=== PATIENT | male | born 1940 | race Caucasian/White ===

== ENCOUNTER 2016-05-18 14:24 | Inpatient (IN) | payer MEDICARE ==
[2016-05-18] MEDS ORDERED: NITROGLYCERIN OINT 1 INCH/GM PACKET TOPICAL STA (14:51)
[2016-05-18] MEDS ORDERED: LORazepam 2 MG/ML SYRINGE IV STA (14:51)
--- NOTE | 2016-05-18 14:57 | ED ---
General Adult HPI - General Chief complaint: Chest Pain Stated complaint: Chest Pain Time Seen by Provider: 05/18/16 14:40 Source: patient, family, RN notes reviewed Mode of arrival: wheelchair Limitations: no limitations - History of Present Illness Initial comments: This is a 75-year-old male who presents to the emergency department complaining of pain in his back. Patient states she had similar pain about 3 years ago and he had a heart attack and 2 stents placed at that time. Patient states this feels exactly the same as it did then. Patient denies any anterior chest pain. Patient denies any difficulty breathing or shortness of breath. Patient denies any radiation of the pain. Patient denies any nausea. Patient denies any diaphoresis. Patient states the pain started about 4:00 this morning didn' t think much of it but today is that they when it got progressively worse. Patient denies any recent fever or chills or cough. Patient denies any abdominal pain. Patient denies any vomiting or diarrhea. Patient denies being lightheaded dizzy or having any near syncopal episodes. Patient denies any headache patient denies numbness weakness. Patient states took a nitroglycerin away and an aspirin and the pain has subsided since then but is not completely gone currently. - Related Data Home Medications Medication Instructions Recorded Confirmed Allopurinol [Zyloprim] 300 mg PO DAILY 05/18/16 05/18/16 Aspirin 81 mg PO DAILY 05/18/16 05/18/16 Atorvastatin Calcium [Lipitor] 20 mg PO DAILY 05/18/16 05/18/16 Carisoprodol [Soma] 350 mg PO HS 05/18/16 05/18/16 Colchicine [Colcrys] 0.6 mg PO BID 05/18/16 05/18/16 Diazepam [Valium] 5 mg PO DAILY PRN 05/18/16 05/18/16 Metoprolol Succinate (ER) [Toprol 50 mg PO DAILY 05/18/16 05/18/16 Xl] Multivitamin [Men's Multi-Vitamin] 1 tab PO DAILY 05/18/16 05/18/16 Omeprazole [PriLOSEC] 20 mg PO AC-BRKFST 05/18/16 05/18/16 amLODIPine [Norvasc] 5 mg PO DAILY 05/18/16 05/18/16 Allergies Allergy/AdvReac Type Severity Reaction Status Date / Time No Known Allergies Allergy Verified 05/18/16 15:22 Review of Systems ROS Statement: Those systems with pertinent positive or pertinent negative responses have been documented in the HPI. ROS Other: All systems not noted in ROS Statement are negative. Past Medical History Past Medical History: Hypertension, Myocardial Infarction ([place]) Additional Past Medical History / Comment(s): Gout History of Any Multi-Drug Resistant Organisms: None Reported Past Surgical History: Heart Catheterization With Stent Past Psychological History: No Psychological Hx Reported Smoking Status: Current every day smoker Past Alcohol Use History: None Reported Past Drug Use History: None Reported General Exam - General Exam Comments Initial Comments: GENERAL: Patient is well-developed and well-nourished. Patient is nontoxic and well- hydrated and is in mild distress. ENT: Neck is soft and supple. No significant lymphadenopathy is noted. Oropharynx is clear. Moist mucous membranes. Neck has full range of motion without eliciting any pain. EYES: The sclera were anicteric and conjunctiva were pink and moist. Extraocular movements were intact and pupils were equal round and reactive to light. Eyelids were unremarkable. PULMONARY: Unlabored respirations. Good breath sounds bilaterally. No audible rales rhonchi or wheezing was noted. CARDIOVASCULAR: There is a regular rate and rhythm without any murmurs gallops or rubs. Femoral pulses are equal bilaterally ABDOMEN: Soft and nontender with normal bowel sounds. No palpable organomegaly was noted. There is no palpable pulsatile mass. SKIN: Skin is clear with no lesions or rashes and otherwise unremarkable. NEUROLOGIC: Patient is alert and oriented x3. Cranial nerves II through XII are grossly intact. Motor and sensory are also intact. Normal speech, volume and content. Symmetrical smile. Cerebellar exam grossly intact. MUSCULOSKELETAL: Normal extremities with adequate strength and full range of motion. No lower extremity swelling or edema. No calf tenderness. LYMPHATICS: No significant lymphadenopathy is noted PSYCHIATRIC: Normal psychiatric evaluation. Normal interpersonal interactions appears functionally intact in deals appropriately with others. No signs of depression. Patient is mildly anxious Limitations: no limitations Course Vital Signs 05/18/16 14:47 Temperature 97.7 F Pulse Rate 84 Respiratory 18 Rate Blood Pressure 188/87 O2 Sat by Pulse 96 Oximetry Medical Decision Making - Medical Decision Making Patient's EKG shows a normal sinus rhythm at 80 bpm NC interval is 168 QRSs 112 QT interval 404 QTC is 465 per patient's EKG shows some quick Q waves in the inferior leads but when I compared to an old EKG there are unchanged. Patient has no evidence of ST segment elevation or depression. Patient's pain was much improved in the emergency department but still slightly present. Enzymes were negative however because this was the same type of pain the patient had previously with his [place] felt it necessary to heparinize the patient and admit the patient. I spoke with Sayed admit this patient to consult cardiology and I started heparin. I continue aspirin nitroglycerin on the floor. - Lab Data Result diagrams: 05/18/16 14:45 05/18/16 14:45 Lab Results 05/18/16 05/18/16 05/18/16 Range/Units 14:45 14:45 14:45 WBC 9.6 (3.8-10.6) k/uL RBC 4.46 (4.30-5.90) m/uL Hgb 15.0 (13.0-17.5) gm/dL Hct 42.9 (39.0-53.0) % MCV 96.0 (80.0-100.0) fL MCH 33.6 (25.0-35.0) pg MCHC 35.0 (31.0-37.0) g/dL RDW 13.9 (11.5-15.5) % Plt Count 144 L (150-450) k/uL PT (9.0-12.0) sec INR (<1.1) APTT (22.0-30.0) sec Sodium 143 (137-145) mmol/L Potassium 3.9 (3.5-5.1) mmol/L Chloride 105 (98-107) mmol/L Carbon Dioxide 25 (22-30) mmol/L Anion Gap 13 mmol/L BUN 17 (9-20) mg/dL Creatinine 1.19 (0.66-1.25) mg/dL Est GFR (MDRD) Af Amer >60 (>60 ml/min/1.73 sqM) Est GFR (MDRD) Non-Af 60 (>60 ml/min/1.73 sqM) Glucose 103 H (74-99) mg/dL Calcium 9.5 (8.4-10.2) mg/dL Magnesium 1.8 (1.6-2.3) mg/dL Total Bilirubin 1.0 (0.2-1.3) mg/dL AST 36 (17-59) U/L ALT 50 (21-72) U/L Alkaline Phosphatase 90 (38-126) U/L Total Creatine Kinase 142 (55-170) U/L CK-MB (CK-2) 1.7 (0.0-2.4) ng/mL CK-MB (CK-2) Rel Index 1.2 Troponin I <0.012 (0.000-0.034) ng/mL Total Protein 7.6 (6.3-8.2) g/dL Albumin 4.7 (3.5-5.0) g/dL 05/18/16 Range/Units 14:45 WBC (3.8-10.6) k/uL RBC (4.30-5.90) m/uL Hgb (13.0-17.5) gm/dL Hct (39.0-53.0) % MCV (80.0-100.0) fL MCH (25.0-35.0) pg MCHC (31.0-37.0) g/dL RDW (11.5-15.5) % Plt Count (150-450) k/uL PT 10.3 (9.0-12.0) sec INR 1.0 (<1.1) APTT 24.6 (22.0-30.0) sec Sodium (137-145) mmol/L Potassium (3.5-5.1) mmol/L Chloride (98-107) mmol/L Carbon Dioxide (22-30) mmol/L Anion Gap mmol/L BUN (9-20) mg/dL Creatinine (0.66-1.25) mg/dL Est GFR (MDRD) Af Amer (>60 ml/min/1.73 sqM) Est GFR (MDRD) Non-Af (>60 ml/min/1.73 sqM) Glucose (74-99) mg/dL Calcium (8.4-10.2) mg/dL Magnesium (1.6-2.3) mg/dL Total Bilirubin (0.2-1.3) mg/dL AST (17-59) U/L ALT (21-72) U/L Alkaline Phosphatase (38-126) U/L Total Creatine Kinase (55-170) U/L CK-MB (CK-2) (0.0-2.4) ng/mL CK-MB (CK-2) Rel Index Troponin I (0.000-0.034) ng/mL Total Protein (6.3-8.2) g/dL Albumin (3.5-5.0) g/dL Critical Care Time Critical Care Time: Yes Total Critical Care Time: 35 Disposition Clinical Impression: Unstable angina pectoris Disposition: ADMITTED IP TO THIS [facility] Time of Disposition: 16:02
--- NOTE | 2016-05-18 15:13 | XR ---
EXAMINATION TYPE: XR chest 2V DATE OF EXAM: 05/18/2016 3:08 PM COMPARISON: 10/02/2012 HISTORY: Chest pain FINDINGS: The lungs are clear and there is no pneumothorax, pleural effusion, or focal pneumonia. Upper medias tinal prominence of the right likely vascular. No overt failure. Mild cardiomegaly. Mild degenerative change of the spine. IMPRESSION: 1. No acute process.
[2016-05-18 15:18] LABS: ALT 50 U/L (21-72); AST 36 U/L (17-59); Alkaline Phosphatase 90 U/L (38-126); Anion Gap 13 mmol/L; Blood Urea Nitrogen 17 mg/dL (9-20); Calcium 9.5 mg/dL (8.4-10.2); Carbon Dioxide 25 mmol/L (22-30); Chloride 105 mmol/L (98-107); Glucose 103 mg/dL (74-99); Magnesium 1.8 mg/dL (1.6-2.3); Non-African American GFR(MDRD) 60 (>60 ml/min/1.73 sqM); Potassium 3.9 mmol/L (3.5-5.1); Sodium 143 mmol/L (137-145); Total Protein 7.6 g/dL (6.3-8.2)
[2016-05-18 15:28] LABS: Basophils % (A) 0 %; CH 35.5; CHCM 37.2; Eosinophils % (A) 0 %; HCT 42.9 % (39.0-53.0); HDW 3.03; Hyperchromasia Slight; Luc # (Auto) 0.17; Luc % (Auto) 2; Lymphocytes # (A) 1.1 k/uL (1.0-4.8); Lymphocytes % (A) 12 %; MCH 33.6 pg (25.0-35.0); Mean Platelet Volume 7.1; Monocytes # (A) 0.5 k/uL (0-1.0); Monocytes % (A) 5 %; Neutrophils # (A) 7.7 k/uL (1.3-7.7); Neutrophils % (A) 81 %; RBC 4.46 m/uL (4.30-5.90); RDW 13.9 % (11.5-15.5); WBC 9.6 k/uL (3.8-10.6); WBC (Perox) 9.49
[2016-05-18 15:29] LABS: Partial Thromboplastin Time 24.6 sec (22.0-30.0); Prothrombin Time 10.3 sec (9.0-12.0)
[2016-05-18 15:34] LABS: Creatine Kinase 142 U/L (55-170)
[2016-05-18 15:47] LABS: Creatine Kinase MB 1.7 ng/mL (0.0-2.4); Troponin I <0.012 ng/mL (0.000-0.034)
[2016-05-18] MEDS ORDERED: NITROGLYCERIN SL TABS 0.4 MG TAB SUBLINGUAL PRN (16:03)
[2016-05-18] MEDS ORDERED: hydrALAZINE HCL 20 MG/ML 1 ML VIAL IVP STA (16:14)
[2016-05-18] MEDS: HEPARIN SODIUM,PORCINE 5,000 UNIT/ML 1 ML VIAL IV ONE (18:18)
[2016-05-18] MEDS: HEPARIN SODIUM,PORCINE/D5W PMX 25,000 UNIT in DEXTROSE/WATER 1 500ML.BAG IV SCH (18:33)
[2016-05-18 20:48] LABS: Creatine Kinase 113 U/L (55-170)
[2016-05-18 21:02] LABS: Creatine Kinase MB 1.4 ng/mL (0.0-2.4); Troponin I <0.012 ng/mL (0.000-0.034)
[2016-05-19] MEDS ORDERED: ACETAMINOPHEN TAB 500 MG TAB PO STA (00:36)
[2016-05-19 01:21] LABS: Creatine Kinase MB 1.3 ng/mL (0.0-2.4)
[2016-05-19] MEDS: HEPARIN SODIUM,PORCINE 5,000 UNIT/ML 1 ML VIAL IV ONE (03:29)
[2016-05-19] MEDS: NITROGLYCERIN OINT 1 INCH/GM PACKET TOPICAL SCH ×3 (06:15→13:20)
[2016-05-19] MEDS: ASPIRIN 325 MG TAB PO SCH (09:52)
[2016-05-19] MEDS ORDERED: DIAZEPAM 5 MG TAB PO PRN (10:36)
--- NOTE | 2016-05-19 10:46 | P.CRDCN ---
<Faith Graham E - Last Filed: 05/19/16 10:50> History of Present Illness Consult date: 05/19/16 Requesting physician: Dolly Dean Consult reason: chest pain Chief complaint: Chest pain History of present illness: This is a pleasant 75-year-old gentleman who follows regularly with Dr. Hernandez in the office. He has a known history of coronary artery disease with prior stent placement of the left anterior descending artery and diag in 2012, patient was also noted at that time to have a chronic total occlusion of the proximal RCA, hypertension, hyperlipidemia, history of gout, he is a nonsmoker, has one cocktail in the evening. He presents to the hospital with symptoms of discomfort between his shoulder blades, he states that it started yesterday morning, he took some sublingual nitroglycerin which he states was over 3 years old, no relief of symptoms. Patient denies any discomfort in his chest, no shortness of breath, no diaphoresis. Came to the emergency room for further evaluation. Nitropaste was applied, shortly thereafter the symptoms subsided. He states that the pain in the scapula area is similar to what he had prior to his stent placements. According to the patient, he's been doing fairly well at home, walking up to 4 miles a day. Patient does state that recently his gout medication was doubled because of issues of a flareup of gout. Other than that he's been doing quite well. Patient also states that his blood pressure normally runs in the 1:30 systolic range, on admission here blood pressure was 188/87 with a heart rate in the 80s. 96% on room air. Blood pressure this morning 156/80, heart rate in the 80s. At the time of my examination this morning, patient denies any discomfort in his scapula area, denies chest pain or difficulty breathing. EG on arrival here showed a normal sinus rhythm with no acute changes noted. Laboratory data was reviewed, CBC normal, potassium 3.9, BUN 17, creatinine 1.1, troponins negative 2. Rest x- ray did not reveal any acute process. Past Medical History Past Medical History: Coronary Artery Disease (CAD), Cancer, Chest Pain / Angina , GERD/Reflux, Hyperlipidemia, Hypertension, Myocardial Infarction ([place]), Osteoarthritis ([place]) Additional Past Medical History / Comment(s): Gout, "arrythmia",hiatal hernia, varicose veins,bronchitis,ibs,diverticulitis,prostatitis,kidney stones,eczema. hypoglycemia,idiopathic peripheral neuropathy, skin cancer(melanoma)removed from [facility] Last Myocardial Infarction Date:: 2012 History of Any Multi-Drug Resistant Organisms: None Reported Past Surgical History: Heart Catheterization With Stent, Tonsillectomy Additional Past Surgical History / Comment(s): melanoma skin cancer removed from [facility], 2008 rt knee arthoscopy, heart cath with stents to lad,diag. colonoscopy. Past Anesthesia/Blood Transfusion Reactions: Motion Sickness Additional Past Anesthesia/Blood Transfusion Reaction / Comment(s): motion sickness if on boat. Date of Last Stent Placement:: 2012 Past Psychological History: Anxiety Smoking Status: Former smoker Past Alcohol Use History: Daily Additional Past Alcohol Use History / Comment(s): smoked x 1 year years ago- then quit. enjoys 1 mixed drink daily(3 fingers of scotch) Past Drug Use History: None Reported - Past Family History Father Family Medical History: Myocardial Infarction ([place]) Mother Family Medical History: Myocardial Infarction ([place]) Medications and Allergies Home Medications Medication Instructions Recorded Confirmed Type Allopurinol [Zyloprim] 300 mg PO DAILY 05/18/16 05/18/16 History Aspirin 81 mg PO DAILY 05/18/16 05/18/16 History Atorvastatin Calcium [Lipitor] 20 mg PO DAILY 05/18/16 05/18/16 History Carisoprodol [Soma] 350 mg PO HS 05/18/16 05/18/16 History Colchicine [Colcrys] 0.6 mg PO BID 05/18/16 05/18/16 History Diazepam [Valium] 5 mg PO DAILY PRN 05/18/16 05/18/16 History Metoprolol Succinate (ER) [Toprol 50 mg PO DAILY 05/18/16 05/18/16 History Xl] Multivitamin [Men's Multi-Vitamin] 1 tab PO DAILY 05/18/16 05/18/16 History Omeprazole [PriLOSEC] 20 mg PO AC-BRKFST 05/18/16 05/18/16 History amLODIPine [Norvasc] 5 mg PO DAILY 05/18/16 05/18/16 History Allergies Allergy/AdvReac Type Severity Reaction Status Date / Time No Known Allergies Allergy Verified 05/18/16 15:22 Physical Exam Vitals: Vital Signs Temp Pulse Pulse Resp BP BP Pulse Ox 05/19/16 07:50 85 16 05/19/16 07:49 96.6 F L 85 16 157/87 97 05/19/16 06:26 97.9 F 84 18 170/93 95 05/19/16 05:43 98.7 F 67 16 138/71 96 05/19/16 04:11 72 16 147/71 96 05/19/16 02:00 76 16 151/80 97 05/19/16 00:40 98.4 F 84 16 141/84 97 05/18/16 23:00 80 16 97 05/18/16 20:59 18 05/18/16 20:14 95 16 149/73 95 05/18/16 18:38 91 16 153/77 96 05/18/16 18:00 84 16 169/87 95 05/18/16 16:51 85 16 153/75 97 Intake and Output 05/18/16 05/19/16 05/19/16 22:59 06:59 14:59 Intake Total 177 Balance 177 Intake: Intake, IV Titration 177 Amount Heparin Sodium,Porcine/ 177 D5w Pmx 25,000 unit In Dextrose/Water 1 500ml. bag @ 12 UNITS/KG/HR 24. 92 mls/hr IV .Q20H4M [facility] Rx#:[id number] Other: Voiding Method Toilet PHYSICAL EXAMINATION: HEENT: Head is atraumatic, normocephalic. Pupils equal, round. Neck is supple. There is no elevated jugular venous pressure. HEART EXAMINATION: Heart S1 and S2 systolic murmur is heard. CHEST EXAMINATION: Lungs are clear to auscultation and precussion. No chest wall tenderness is noted on palpation or with deep breathing. ABDOMEN: Soft, nontender. Bowel sounds are heard. No organomegaly noted. EXTREMITIES: 2+ peripheral pulses with no evidence of peripheral edema and no calf tenderness noted. NEUROLOGIC patient is awake, alert and oriented -3. . Results 05/18/16 14:45 05/18/16 14:45 Cardiac Enzymes 05/18/16 05/19/16 Range/Units 20:17 00:58 CK-MB (CK-2) 1.4 1.3 (0.0-2.4) ng/mL Troponin I <0.012 (0.000-0.034) ng/mL Coagulation 05/19/16 Range/Units 00:58 APTT 32.6 H (22.0-30.0) sec Current Medications Generic Name Dose Route Start Last Admin Trade Name Miriam PRN Reason Stop Dose Admin Aspirin 325 mg 05/19/16 09:00 05/19/16 09:52 Aspirin PO 325 mg DAILY SERGIO Administration Heparin Sodium/Dextrose 25,000 500 mls @ 24.92 mls/hr 05/18/16 16:00 03:24 unit/ IV Solution IV 12.62 units/kg/hr .Q20H4M SERGIO 26.21 mls/hr Protocol Titration 12 UNITS/KG/HR Nitroglycerin 1 inch 05/19/16 00:00 05/19/16 06:15 Nitro-Bid Oint TOPICAL Not Given Q6HR [facility] Nitroglycerin 0.4 mg 05/18/16 16:03 Nitrostat SUBLINGUAL Q5M PRN Chest Pain Intake and Output 05/18/16 05/19/16 05/19/16 22:59 06:59 14:59 Intake Total 177 Balance 177 Intake: Intake, IV Titration 177 Amount Heparin Sodium,Porcine/ 177 D5w Pmx 25,000 unit In Dextrose/Water 1 500ml. bag @ 12 UNITS/KG/HR 24. 92 mls/hr IV .Q20H4M [facility] Rx#:[id number] Other: Voiding Method Toilet EKG Interpretations (text) EKG shows normal sinus rhythm with no acute changes. Assessment and Plan Plan: Assessment and plan #1 symptoms of discomfort in the scapula area between the shoulder blades, similar to patient's symptoms at the time of his myocardial infarction. Troponins have been negative 2. EKG shows normal sinus rhythm with no acute changes. #2 known history of coronary artery disease with prior stent placement of the mid diet, and mid LAD in 2012, known chronic total occlusion of the proximal RCA. #3 hypertension #4 hyperlipidemia #5 gout Plan We'll obtain a third troponin value, we will also obtain an echocardiogram with Doppler study. Continue IV heparin. Further recommendations to follow. DNP note has been reviewed, I agree with a documented findings and plan of care. Patient was seen and examined. <Davy Fong - Last Filed: 05/19/16 11:47> Physical Exam Vitals: Vital Signs Temp Pulse Pulse Resp BP BP Pulse Ox 05/19/16 11:20 96.7 F L 80 18 155/95 96 05/19/16 07:50 85 16 05/19/16 07:49 96.6 F L 85 16 157/87 97 05/19/16 06:26 97.9 F 84 18 170/93 95 05/19/16 05:43 98.7 F 67 16 138/71 96 05/19/16 04:11 72 16 147/71 96 05/19/16 02:00 76 16 151/80 97 05/19/16 00:40 98.4 F 84 16 141/84 97 05/18/16 23:00 80 16 97 05/18/16 20:59 18 05/18/16 20:14 95 16 149/73 95 05/18/16 18:38 91 16 153/77 96 05/18/16 18:00 84 16 169/87 95 05/18/16 16:51 85 16 153/75 97 Intake and Output 05/18/16 05/19/16 05/19/16 22:59 06:59 14:59 Intake Total 177 212.738 Balance 177 212.738 Intake: Intake, IV Titration 177 212.738 Amount Heparin Sodium,Porcine/ 177 212.738 D5w Pmx 25,000 unit In Dextrose/Water 1 500ml. bag @ 12 UNITS/KG/HR 24. 92 mls/hr IV .Q20H4M [facility] Rx#:[id number] Other: Voiding Method Toilet Results 05/18/16 14:45 05/18/16 14:45 Cardiac Enzymes 05/18/16 05/19/16 Range/Units 20:17 00:58 CK-MB (CK-2) 1.4 1.3 (0.0-2.4) ng/mL Troponin I <0.012 (0.000-0.034) ng/mL Coagulation 05/19/16 05/19/16 Range/Units 00:58 10:40 APTT 32.6 H 43.6 H (22.0-30.0) sec Lipids 05/19/16 Range/Units 10:35 Triglycerides 135 (<150) mg/dL Cholesterol 131 (<200) mg/dL HDL Cholesterol 64 H (40-60) mg/dL Current Medications Generic Name Dose Route Start Last Admin Trade Name Freq PRN Reason Stop Dose Admin Allopurinol 300 mg 05/19/16 10:45 Zyloprim PO DAILY [facility] Amlodipine Besylate 5 mg 05/19/16 10:45 Norvasc PO DAILY [facility] Aspirin 325 mg 05/19/16 09:00 05/19/16 09:52 Aspirin PO 325 mg DAILY [facility] Administration Atorvastatin Calcium 20 mg 05/19/16 10:45 Lipitor PO DAILY [facility] Carisoprodol 350 mg 05/19/16 21:00 Soma PO HS [facility] Diazepam 5 mg 05/19/16 10:36 Valium PO DAILY PRN Anxiety Heparin Sodium/Dextrose 25,000 500 mls @ 24.92 mls/hr 05/18/16 16:00 11:31 unit/ IV Solution IV 14.62 units/kg/hr .Q20H4M SERGIO 30.37 mls/hr Protocol Titration 12 UNITS/KG/HR Metoprolol Succinate 50 mg 05/19/16 10:45 Toprol Xl PO DAILY [facility] Nitroglycerin 1 inch 05/19/16 00:00 05/19/16 06:15 Nitro-Bid Oint TOPICAL Not Given Q6HR [facility] Nitroglycerin 0.4 mg 05/18/16 16:03 Nitrostat SUBLINGUAL Q5M PRN Chest Pain Pantoprazole Sodium 40 mg 05/19/16 10:45 Protonix PO AC-BRKFST [facility] Intake and Output 05/18/16 05/19/16 05/19/16 22:59 06:59 14:59 Intake Total 177 212.738 Balance 177 212.738 Intake: Intake, IV Titration 177 212.738 Amount Heparin Sodium,Porcine/ 177 212.738 D5w Pmx 25,000 unit In Dextrose/Water 1 500ml. bag @ 12 UNITS/KG/HR 24. 92 mls/hr IV .Q20H4M [facility] Rx#:[id number] Other: Voiding Method Toilet
[2016-05-19 11:29] LABS: Cholesterol 131 mg/dL (<200); HDL Cholesterol 64 mg/dL (40-60); Triglycerides 135 mg/dL (<150)
--- NOTE | 2016-05-19 11:38 | P.HPIM ---
History of Present Illness H&P Date: 05/19/16 Chief Complaint: Chest pain This is a 75-year-old male who presented to the emergency room last night complaining of pain in his back. Patient states she had similar pain about 3 years ago and he had a heart attack and 2 stents placed at that time. Patient states this feels exactly the same as it did then. Patient denies any anterior chest pain. Patient denies any difficulty breathing or shortness of breath. Patient denies any radiation of the pain. Patient denies any nausea. Patient denies any diaphoresis. Patient states the pain started about 4:00 in the morning didn't think much of it but today is that they when it got progressively worse. Patient denies any recent fever or chills or cough. Patient denies any abdominal pain. Patient denies any vomiting or diarrhea. Patient denies being lightheaded dizzy or having any near syncopal episodes. Patient denies any headache patient denies numbness weakness. Patient states took a nitroglycerin away and an aspirin and the pain has subsided since then but is not completely gone currently. Review of Systems Review of system: 14 points review of systems were obtained and were negative except to what were mentioned in the HPI. Past Medical History Past Medical History: Coronary Artery Disease (CAD), Cancer, Chest Pain / Angina , GERD/Reflux, Hyperlipidemia, Hypertension, Myocardial Infarction ([place]), Osteoarthritis ([place]) Additional Past Medical History / Comment(s): Gout, "arrythmia",hiatal hernia, varicose veins,bronchitis,ibs,diverticulitis,prostatitis,kidney stones,eczema. hypoglycemia,idiopathic peripheral neuropathy, skin cancer(melanoma)removed from [facility] Last Myocardial Infarction Date:: 2012 History of Any Multi-Drug Resistant Organisms: None Reported Past Surgical History: Heart Catheterization With Stent, Tonsillectomy Additional Past Surgical History / Comment(s): melanoma skin cancer removed from [facility], 2007 rt knee arthoscopy, heart cath with stents to lad,diag. colonoscopy. Past Anesthesia/Blood Transfusion Reactions: Motion Sickness Additional Past Anesthesia/Blood Transfusion Reaction / Comment(s): motion sickness if on boat. Date of Last Stent Placement:: 2012 Past Psychological History: Anxiety Smoking Status: Former smoker Past Alcohol Use History: Daily Additional Past Alcohol Use History / Comment(s): smoked x 1 year years ago- then quit. enjoys 1 mixed drink daily(3 fingers of scotch) Past Drug Use History: None Reported - Past Family History Father Family Medical History: Myocardial Infarction ([place]) Mother Family Medical History: Myocardial Infarction ([place]) Medications and Allergies Home Medications Medication Instructions Recorded Confirmed Type Allopurinol [Zyloprim] 300 mg PO DAILY 05/18/16 05/18/16 History Aspirin 81 mg PO DAILY 05/18/16 05/18/16 History Atorvastatin Calcium [Lipitor] 20 mg PO DAILY 05/18/16 05/18/16 History Carisoprodol [Soma] 350 mg PO HS 05/18/16 05/18/16 History Colchicine [Colcrys] 0.6 mg PO BID 05/18/16 05/18/16 History Diazepam [Valium] 5 mg PO DAILY PRN 05/18/16 05/18/16 History Metoprolol Succinate (ER) [Toprol 50 mg PO DAILY 05/18/16 05/18/16 History Xl] Multivitamin [Men's Multi-Vitamin] 1 tab PO DAILY 05/18/16 05/18/16 History Omeprazole [PriLOSEC] 20 mg PO AC-BRKFST 05/18/16 05/18/16 History amLODIPine [Norvasc] 5 mg PO DAILY 05/18/16 05/18/16 History Allergies Allergy/AdvReac Type Severity Reaction Status Date / Time No Known Allergies Allergy Verified 05/18/16 15:22 Physical Exam Vitals: Vital Signs Temp Pulse Pulse Resp BP BP Pulse Ox 05/19/16 11:20 96.7 F L 80 18 155/95 96 05/19/16 07:50 85 16 05/19/16 07:49 96.6 F L 85 16 157/87 97 05/19/16 06:26 97.9 F 84 18 170/93 95 05/19/16 05:43 98.7 F 67 16 138/71 96 05/19/16 04:11 72 16 147/71 96 05/19/16 02:00 76 16 151/80 97 05/19/16 00:40 98.4 F 84 16 141/84 97 05/18/16 23:00 80 16 97 05/18/16 20:59 18 05/18/16 20:14 95 16 149/73 95 05/18/16 18:38 91 16 153/77 96 05/18/16 18:00 84 16 169/87 95 05/18/16 16:51 85 16 153/75 97 Intake and Output 05/18/16 05/19/16 05/19/16 22:59 06:59 14:59 Intake Total 177 212.738 Balance 177 212.738 Intake: Intake, IV Titration 177 212.738 Amount Heparin Sodium,Porcine/ 177 212.738 D5w Pmx 25,000 unit In Dextrose/Water 1 500ml. bag @ 12 UNITS/KG/HR 24. 92 mls/hr IV .Q20H4M [facility] Rx#:[id number] Other: Voiding Method Toilet General: The patient is awake and alert, in no distress, and does not appear acutely ill. Eye: extra-ocular movements are intact; there is normal conjunctiva bilaterally. . Neck: The neck is supple, there is no tenderness or JVD. Cardiovascular: Normal S1-S2, no S3-S4, no murmurs. Respiratory: Lungs clear to auscultation bilaterally with no wheezes rhonchi or rales. Gastrointestinal: Abdomen is soft, nontender, nondistended, with no organomegaly. . Musculoskeletal: Normal ROM, no tenderness, There is no pedal edema. Neurological: There are no obvious motor or sensory deficits. Speech is normal. Skin: Skin is warm and dry and no rashes or lesions are noted. Results CBC & Chem 7: 05/18/16 14:45 05/18/16 14:45 Labs: Abnormal Lab Results - Last 24 Hours (Table) 05/19/16 05/19/16 05/19/16 Range/Units 00:58 10:35 10:40 APTT 32.6 H 43.6 H (22.0-30.0) sec HDL Cholesterol 64 H (40-60) mg/dL Thrombosis Risk Factor Assmnt - Choose All That Apply Any of the Below Risk Factors Present?: Yes Each Factor Represents 1 point: Obesity (BMI >25), Varicose veins Other Risk Factors: Yes Each Risk Factor Represents 2 Points: Age 61-74 years, Malignancy Other congenital or acquired thrombophilia - If yes, enter type in comment: No Thrombosis Risk Factor Assessment Total Risk Factor Score: 6 Thrombosis Risk Factor Assessment Level: High Risk Assessment and Plan Plan: 1. Chest pain: With typical and atypical features. 12 leads EKG showed no acute ischemic changes in the emergency room. Serial negative 2 sets. Patient was seen and evaluated by cardiology. Plan is to obtain a third troponin and an echocardiogram. Continue telemetry monitoring. Kept on IV heparin for now. 2. History of coronary artery disease status post stent placement 3. Essential hypertension: Blood pressure not well controlled. Home medication will be reordered. We'll continue to monitor closely. 4. Mixed hyperlipidemia: On Lipitor at home. We will check fasting lipid profile Continue telemetry monitoring. Appreciate cardiology recommendations. A repeat lab work in the morning. Awaiting echocardiogram.
--- NOTE | 2016-05-19 11:43 | ECHOF ---
Referral Reason:chest pain MEASUREMENTS -------- HEIGHT: 188.0 cm WEIGHT: 103.9 kg BP: 157/87 RVIDd: 3.0 cm (< 3.3) IVSd: 1.3 cm (0.6 - 1.1) LVIDd: 4.4 cm (3.9 - 5.3) LVPWd: 1.2 cm (0.6 - 1.1) IVSs: 1.7 cm LVIDs: 3.8 cm LVPWs: 1.7 cm LA Diam: 3.8 cm (2.7 - 3.8) LAESV Index (A-L): 26.62 ml/m Ao Diam: 3.6 cm (2.0 - 3.7) AV Cusp: 2.5 cm (1.5 - 2.6) MV EXCURSION: 11.388 mm (> 18.000) MV EF SLOPE: 44 mm/s (70 - 150) EPSS: 0.6 cm MV E Ollie: 0.45 m/s MV DecT: 270 ms MV A Ollie: 0.92 m/s MV E/A Ratio: 0.49 AR PHT: 1385 ms RAP: 5.00 mmHg RVSP: 25.85 mmHg FINDINGS -------- Sinus rhythm. This was a technically adequate study. The left ventricular size is normal. There is mild concentric left ventricular hypertrophy. Overall left ventricular systolic function is mildly impaired with, an EF between 45 - 50 %. Basal posterior LV wall motion is hypokinetic. Basal inferior LV wall motion is hypokinetic. The right ventricle is normal in size and function. The left atrium is normal in size. Normal LA size by volume 22+/-6 ml/m2. The right atrium is normal in size. The aortic valve is trileaflet, and appears structurally normal. No aortic stenosis or regurgitation. Normal appearing mitral valve. No mitral regurgitation. Mild tricuspid regurgitation present. Right ventricular systolic pressure is normal at < 35 mmHg. Trace/mild (physiologic) pulmonic regurgitation. The aortic root size is normal. Normal inferior vena cava with normal inspiratory collapse consistent with estimated right atrial pressure of 5 mmHg. There is no pericardial effusion. CONCLUSIONS -------- 1. Sinus rhythm. 2. The right atrium is normal in size. 3. The aortic valve is trileaflet, and appears structurally normal. No aortic stenosis or regurgitation. 4. Normal appearing mitral valve. 5. Mild tricuspid regurgitation present. 6. Right ventricular systolic pressure is normal at < 35 mmHg. 7. Trace/mild (physiologic) pulmonic regurgitation. 8. The aortic root size is normal. 9. Normal inferior vena cava with normal inspiratory collapse consistent with estimated right atrial pressure of 5 mmHg. 10. There is no pericardial effusion. 11. This was a technically adequate study. 12. The left ventricular size is normal. 13. There is mild concentric left ventricular hypertrophy. 14. Overall left ventricular systolic function is mildly impaired with, an EF between 45 - 50 %. 15. Basal posterior LV wall motion is hypokinetic. 16. Basal inferior LV wall motion is hypokinetic. 17. The right ventricle is normal in size and function. 18. The left atrium is normal in size. CAN DRAGGER: Leigh Copeland RDCS
[2016-05-19] MEDS: METOPROLOL SUCCINATE (ER) 50 MG TAB.ER.24H PO SCH (11:46)
[2016-05-19] MEDS: ALLOPURINOL 300 MG TAB PO SCH (11:47)
[2016-05-19] MEDS: ATORVASTATIN 20 MG TAB PO SCH (11:47)
[2016-05-19] MEDS: amLODIPine 5 MG TAB PO SCH (11:47)
[2016-05-19] MEDS: PANTOPRAZOLE 40 MG TABLET PO SCH (11:47)
[2016-05-19] MEDS: HEPARIN SODIUM,PORCINE/D5W PMX 25,000 UNIT in DEXTROSE/WATER 1 500ML.BAG IV SCH (13:40)
[2016-05-19] MEDS ORDERED: DOBUTamine DRIP for NUC MED 500 MG in DEXTROSE/WATER 1 250ML.BAG IV ONE (14:24)
[2016-05-19] MEDS ORDERED: CARISOPRODOL 350 MG TAB PO SCH (21:00)
[2016-05-19] MEDS ORDERED: ZOLPIDEM 5 MG TAB PO PRN (21:09)
[2016-05-19 22:40] VITALS: TEMP 98.6
[2016-05-20] MEDS: NITROGLYCERIN OINT 1 INCH/GM PACKET TOPICAL SCH ×4 (00:10→11:50)
[2016-05-20] MEDS: HEPARIN SODIUM,PORCINE/D5W PMX 25,000 UNIT in DEXTROSE/WATER 1 500ML.BAG IV SCH (04:08)
[2016-05-20] MEDS: PANTOPRAZOLE 40 MG TABLET PO SCH ×2 (06:32→11:49)
[2016-05-20 06:51] LABS: Basophils % (A) 0 %; CH 35.2; CHCM 36.4; Eosinophils # (A) 0.1 k/uL (0-0.7); Eosinophils % (A) 2 %; HCT 39.9 % (39.0-53.0); HDW 3.01; Luc # (Auto) 0.15; Luc % (Auto) 2; Lymphocytes # (A) 1.5 k/uL (1.0-4.8); Lymphocytes % (A) 20 %; MCH 34.1 pg (25.0-35.0); MCV 97.4 fL (80.0-100.0); Mean Platelet Volume 6.8; Monocytes # (A) 0.5 k/uL (0-1.0); Monocytes % (A) 7 %; Neutrophils # (A) 5.1 k/uL (1.3-7.7); Neutrophils % (A) 69 %; RDW 13.8 % (11.5-15.5); WBC 7.5 k/uL (3.8-10.6); WBC (Perox) 7.69
[2016-05-20 07:33] LABS: Anion Gap 11 mmol/L; Blood Urea Nitrogen 17 mg/dL (9-20); Calcium 9.1 mg/dL (8.4-10.2); Carbon Dioxide 21 mmol/L (22-30); Chloride 106 mmol/L (98-107); Glucose 105 mg/dL (74-99); Non-African American GFR(MDRD) >60 (>60 ml/min/1.73 sqM); Sodium 138 mmol/L (137-145)
[2016-05-20] MEDS ORDERED: DOBUTamine DRIP for NUC MED 500 MG/250 ML BAG IV ONE (09:00)
[2016-05-20 10:40] VITALS: RESP 18
--- NOTE | 2016-05-20 11:24 | P.PN ---
Subjective Principal diagnosis: Scapula pain This is a pleasant 75-year-old gentleman who follows regularly with Dr. Hernandez in the office. He has a known history of coronary artery disease with prior stent placement of the left anterior descending artery and diag in 2012, patient was also noted at that time to have a chronic total occlusion of the proximal RCA, hypertension, hyperlipidemia, history of gout, he is a nonsmoker, has one cocktail in the evening. He presents to the hospital with symptoms of discomfort between his shoulder blades, troponins 3 have been negative. Patient is scheduled to undergo a dobutamine echocardiographic study today. If negative he should be able to be discharged home, if the test is positive patient will require cardiac catheterization. Objective - Vital Signs Vital signs: Vital Signs Temp 98.6 F 05/19/16 20:00 Pulse 86 05/20/16 08:00 Resp 18 05/20/16 08:00 BP 156/90 05/20/16 08:00 Pulse Ox 96 05/20/16 08:00 Intake & Output 05/19/16 05/20/16 05/20/16 18:59 06:59 18:59 Intake Total 381.727 518.296 Output Total 675 Balance 381.727 -156.704 Weight 104.1 kg Intake: IV 180 .9 @ 20 180 Intake, IV Titration 141.727 338.296 Amount Heparin Sodium,Porcine/ 141.727 338.296 D5w Pmx 25,000 unit In Dextrose/Water 1 500ml. bag @ 12 UNITS/KG/HR 24. 92 mls/hr IV .Q20H4M [facility] Rx#:[id number] Oral 240 Output: Urine 675 Other: Voiding Method Toilet - Exam PHYSICAL EXAMINATION: HEENT: Head is atraumatic, normocephalic. Pupils equal, round. Neck is supple. There is no elevated jugular venous pressure. HEART EXAMINATION: Heart S1 and S2 systolic murmur is heard. CHEST EXAMINATION: Lungs are clear to auscultation and precussion. No chest wall tenderness is noted on palpation or with deep breathing. ABDOMEN: Soft, nontender. Bowel sounds are heard. No organomegaly noted. EXTREMITIES: 2+ peripheral pulses with no evidence of peripheral edema and no calf tenderness noted. NEUROLOGIC patient is awake, alert and oriented -3. - Labs CBC & Chem 7: 05/20/16 05:49 05/20/16 05:49 Labs: Abnormal Lab Results - Last 24 Hours (Table) 05/19/16 05/20/16 05/20/16 Range/Units 17:19 00:15 05:49 RBC 4.10 L (4.30-5.90) m/uL Plt Count 134 L (150-450) k/uL APTT 39.2 H 68.2 H (22.0-30.0) sec Carbon Dioxide (22-30) mmol/L Glucose (74-99) mg/dL 05/20/16 05/20/16 Range/Units 05:49 05:49 RBC (4.30-5.90) m/uL Plt Count (150-450) k/uL APTT 69.4 H (22.0-30.0) sec Carbon Dioxide 21 L (22-30) mmol/L Glucose 105 H (74-99) mg/dL Assessment and Plan Plan: Assessment and plan #1 symptoms of discomfort in the scapula area between the shoulder blades, similar to patient's symptoms at the time of his myocardial infarction. Troponins have been negative 3. EKG shows normal sinus rhythm with no acute changes. #2 known history of coronary artery disease with prior stent placement of the mid diet, and mid LAD in 2012, known chronic total occlusion of the proximal RCA. #3 hypertension #4 hyperlipidemia #5 gout Plan Patient is scheduled today to undergo dobutamine echocardiographic study. If negative the patient may be able to be discharged home from cardiology's perspective, if the test is positive patient will require cardiac catheterization. Further recommendations will be based on these findings. DNP note has been reviewed, I agree with a documented findings and plan of care. Patient was seen and examined.
[2016-05-20] MEDS: ALLOPURINOL 300 MG TAB PO SCH (11:49)
[2016-05-20] MEDS: METOPROLOL SUCCINATE (ER) 50 MG TAB.ER.24H PO SCH (11:49)
[2016-05-20] MEDS: ASPIRIN 325 MG TAB PO SCH (11:49)
[2016-05-20] MEDS: amLODIPine 5 MG TAB PO SCH (11:49)
[2016-05-20] MEDS: ATORVASTATIN 20 MG TAB PO SCH (11:49)
[2016-05-20 12:27] VITALS: BP 132/83; PULSE 84
--- NOTE | 2016-05-20 14:16 | ECHOS ---
DATE OF SERVICE: 05/20/2016 AGE: 75Y SEX: M HT: 74" WT: 229 lbs. Protocol Heron: Others: Dobutamine Stress Echo Stage: 2 Dur. of Exercise: 6:30 *Heart Rate Blood Pressure *Rest: 90 Rest: 139/79 * *Max. Achieved: 130 Maximum BP: 192/82 85% PMHR: 124 100% PMHR: 146 *METS: - INDICATIONS: Chest pain. MEDICATIONS: - Mr. Ryan is a 75-year-old gentleman with history of ischemic heart disease and is being evaluated for symptoms of chest pain. STRESS DATA: Baseline EKG showed a sinus rhythm with evidence of old inferior wall myocardial infarction. Blood pressure at rest is 139/79, pulse rate of 90. Patient was given IV dobutamine and was titrated to maximum of 20 mcg, achieving a maximum heart rate of 130 with a blood pressure of 192/82. EKGs taken during and after the dobutamine has continued to show evidence of old inferior wall MT without any acute ST-T abnormalities. ECHO DATA: Baseline echo images showed hypokinesia of the inferobasal segment. Exercise images showed augmentation of wall motion thickening in all the segments except the inferobasal segments. FINAL IMPRESSION: 1. 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 2. No evidence of inducible ischemia.
--- NOTE | 2016-05-20 15:22 | P.DS ---
Providers Date of admission: 05/19/16 15:17 Expected date of discharge: 05/20/16 Attending physician: Dolly Dean Consults: Dr. Evans Primary care physician: Rae Harrison Hospital Course: Discharge diagnosis 1. Chest pain: With typical and atypical features. 12 leads EKG showed no acute ischemic changes in the emergency room. Cardiac enzymes negative 3. Echo shows an EF of 45-50% with wall abnormality. Patient underwent stress test showing evidence of old inferior wall myocardial infarction. No evidence of inducible ischemia 2. History of coronary artery disease status post stent placement 3. Essential hypertension: Blood pressure not well controlled On admission. Home medications reordered. Blood pressures have improved. 4. Mixed hyperlipidemia: On Lipitor at home. Hospital course This is a 75-year-old male who came in with complaints of chest pain and back pain. The pain was similar to his previous heart attack in which she required 2 stents. Patient was admitted to the sixth floor. Started on IV heparin. Cardiology was consulted. Troponins were negative 3 sets EKG action no acute ischemic changes. Echo showed an EF of 45-50% with wall abnormality. As stated above patient does have a known history of an [place]. Underwent stress test with evidence of an old inferior wall [place] and no evidence of inducible ischemia. Case discussed with cardiology they have cleared him for discharge. Recommend to continue with current blood pressure medications. We'll have him follow up with his PCP in 1 week. Patient did have some elevated blood pressure on admission likely related to anxiety. Patient is medically stable for discharge. Also been cleared by cardiology. Please refer to chart for any further details. We'll have him follow up with his PCP in 1 week. Patient Condition at Discharge: Stable Plan - Discharge Summary Discharge Medication List Allopurinol [Zyloprim] 300 mg PO DAILY 05/18/16 [History] Aspirin 81 mg PO DAILY 05/18/16 [History] Atorvastatin Calcium [Lipitor] 20 mg PO DAILY 05/18/16 [History] Carisoprodol [Soma] 350 mg PO HS 05/18/16 [History] Colchicine [Colcrys] 0.6 mg PO BID 05/18/16 [History] Diazepam [Valium] 5 mg PO DAILY PRN 05/18/16 [History] Metoprolol Succinate (ER) [Toprol XL] 50 mg PO DAILY 05/18/16 [History] Multivitamin [Men's Multi-Vitamin] 1 tab PO DAILY 05/18/16 [History] Omeprazole [PriLOSEC] 20 mg PO AC-BRKFST 05/18/16 [History] amLODIPine [Norvasc] 5 mg PO DAILY 05/18/16 [History] Follow up Appointment(s)/Referral(s): Rae Harrison MD [Primary Care Provider] - 1 Week Patient Instructions/Handouts: Cardiac Stress Test (DC), Cardiac Stress Test ( GEN) Activity/Diet/Wound Care/Special Instructions: Diet: cardiac Activity: as tolerated Discharge Disposition: HOME SELF-CARE
== END 2016-05-20 16:17 | disposition home or self-care (01) | DRG 313 ==
LOC: EC 14:24 → 3OBS 16:03 → 6SEL 05-19 05:29 → OBSVTOIN 05-19 15:17
PROVIDERS: ADMIT Internal Medicine; ATTEND Internal Medicine
PROC: 4A02XM4 Measurement of Cardiac Total Activity, External Approach (ICD-10-PCS; principal; 2016-05-20)
PROC: B245ZZZ Ultrasonography of Left Heart (ICD-10-PCS; 2016-05-20)
PROC: 3E033KZ Introduction of Other Diagnostic Substance into Peripheral Vein, Percutaneous Approach (ICD-10-PCS; 2016-05-20)
DX: R07.89 Other chest pain (principal); I25.82 Chronic total occlusion of coronary artery; I10 Essential (primary) hypertension; I25.2 Old myocardial infarction; F41.9 Anxiety disorder, unspecified; E78.2 Mixed hyperlipidemia; K21.9 Gastro-esophageal reflux disease without esophagitis; I25.10 Atherosclerotic heart disease of native coronary artery without angina pectoris; R93.1 Abnormal findings on diagnostic imaging of heart and coronary circulation; M10.9 Gout, unspecified; K58.9 Irritable bowel syndrome, unspecified; M54.9 Dorsalgia, unspecified; I83.90 Asymptomatic varicose veins of unspecified lower extremity; G60.9 Hereditary and idiopathic neuropathy, unspecified; L30.9 Dermatitis, unspecified; K44.9 Diaphragmatic hernia without obstruction or gangrene; M19.90 Unspecified osteoarthritis, unspecified site; Z87.891 Personal history of nicotine dependence; Z79.82 Long term (current) use of aspirin; Z85.820 Personal history of malignant melanoma of skin; Z87.442 Personal history of urinary calculi; Z95.5 Presence of coronary angioplasty implant and graft; Z82.49 Family history of ischemic heart disease and other diseases of the circulatory system; Z79.899 Other long term (current) drug therapy; Z86.19 Personal history of other infectious and parasitic diseases; Z87.09 Personal history of other diseases of the respiratory system; Z87.19 Personal history of other diseases of the digestive system; Z87.438 Personal history of other diseases of male genital organs
CPT/HCPCS: 36415; 71020; 80048; 80053; 80061; 82550; 82553; 83735; 84484; 85025; 85610; 85730; 93005; 93017; 93306; 93350; 96365; 96366; 96375; 96376; 99291

== ENCOUNTER 2019-01-26 04:11 | Observation (INO) | payer MEDICARE ==
[2019-01-26] MEDS ORDERED: ASPIRIN 81 MG PO STA (04:24)
[2019-01-26] MEDS ORDERED: SODIUM CHLORIDE 0.9% 1,000 ML IV STA (04:24)
[2019-01-26] MEDS ORDERED: NITROGLYCERIN SL TABS 0.4 MG TAB SUBLINGUAL STA (04:24)
[2019-01-26 04:54] LABS: INR 0.9 (<1.2); Prothrombin Time 10.1 sec (9.0-12.0)
--- NOTE | 2019-01-26 04:57 | XR ---
EXAM: XR Chest, 2 Views CLINICAL HISTORY: ITS.REASON XR Reason: Chest Pain TECHNIQUE: Frontal and lateral views of the chest. COMPARISON: 05/18/16 FINDINGS: Lungs: Unremarkable. No consolidation. Pleural space: Unremarkable. No pneumothorax. Heart: Unremarkable. No cardiomegaly. Mediastinum: Unremarkable. Bones/joints: Unremarkable. IMPRESSION: Normal chest x-rays.
[2019-01-26 05:04] LABS: Albumin 4.5 g/dL (3.5-5.0); Magnesium 1.8 mg/dL (1.6-2.3); Potassium 3.9 mmol/L (3.5-5.1); Total Bilirubin 0.7 mg/dL (0.2-1.3); Total Protein 7.4 g/dL (6.3-8.2)
--- NOTE | 2019-01-26 05:21 | ED ---
Chest Pain HPI - General Chief Complaint: Chest Pain Stated Complaint: Chest Pain Time Seen by Provider: 01/26/19 04:24 Source: patient Mode of arrival: ambulatory Limitations: no limitations - History of Present Illness Initial Comments: Laith is a pleasant 78-year-old gentleman who presents the emergency department this morning for evaluation of pressure-like chest pain radiating to his right shoulder. Patient reports the pain began yesterday evening prior to going to bed, the pain has been persistent and kept him from sleeping throughout the night. Pain is not better with any specific physicians, pain is not any worse with exertion. Patient ports he took 3 sublingual nitro prior to coming to the emergency department as well as aspirin with no change in the discomfort. Patient reports that this pain is similar to previous episodes of angina in which he had to be hospitalized and received cardiac stenting. MD Complaint: chest pain -: hour(s) Onset: during rest Pain Location: substernal, right chest Pain Radiation: RUE Severity: moderate Quality: dull, similar to prior [place] Consistency: constant Improves With: nothing Worsens With: nothing Treatments Prior to Arrival: aspirin, nitroglycerin - Related Data Home Medications Medication Instructions Recorded Confirmed Allopurinol [Zyloprim] 300 mg PO DAILY 05/18/16 05/18/16 Aspirin 81 mg PO DAILY 05/18/16 05/18/16 Atorvastatin Calcium [Lipitor] 20 mg PO DAILY 05/18/16 05/18/16 Carisoprodol [Soma] 350 mg PO HS 05/18/16 05/18/16 Colchicine [Colcrys] 0.6 mg PO BID 05/18/16 05/18/16 Diazepam [Valium] 5 mg PO DAILY PRN 05/18/16 05/18/16 Metoprolol Succinate (ER) [Toprol 50 mg PO DAILY 05/18/16 05/18/16 XL] Multivitamin [Men's Multi-Vitamin] 1 tab PO DAILY 05/18/16 05/18/16 Omeprazole [PriLOSEC] 20 mg PO AC-BRKFST 05/18/16 05/18/16 amLODIPine [Norvasc] 5 mg PO DAILY 05/18/16 05/18/16 Allergies Allergy/AdvReac Type Severity Reaction Status Date / Time No Known Allergies Allergy Verified 01/26/19 04:16 Review of Systems ROS Statement: Those systems with pertinent positive or pertinent negative responses have been documented in the HPI. ROS Other: All systems not noted in ROS Statement are negative. Past Medical History Past Medical History: Coronary Artery Disease (CAD), Cancer, Chest Pain / Angina, GERD/Reflux, Hyperlipidemia, Hypertension, Myocardial Infarction ([place]), Osteoarthritis (OA) Additional Past Medical History / Comment(s): Gout, "arrythmia",hiatal herni a,varicose veins,bronchitis,ibs,diverticulitis,prostatitis,kidney stones,eczema. hypoglycemia,idiopathic peripheral neuropathy, skin cancer(melanoma)removed from [facility] Last Myocardial Infarction Date:: 2012 History of Any Multi-Drug Resistant Organisms: None Reported Past Surgical History: Heart Catheterization With Stent, Tonsillectomy Additional Past Surgical History / Comment(s): melanoma skin cancer removed from [facility], 2007 rt knee arthoscopy, heart cath with stents to lad,diag. colonoscopy. Past Anesthesia/Blood Transfusion Reactions: Motion Sickness Additional Past Anesthesia/Blood Transfusion Reaction / Comment(s): motion sickness if on boat. Date of Last Stent Placement:: 2012 Past Psychological History: Anxiety Smoking Status: Former smoker Past Alcohol Use History: Daily Past Drug Use History: None Reported - Past Family History Father Family Medical History: Myocardial Infarction ([place]) Mother Family Medical History: Myocardial Infarction ([place]) General Exam - General Exam Comments Initial Comments: Physical Exam GENERAL: Patient is well-developed and well-nourished. Patient is nontoxic and well- hydrated and is in no distress. HENT: Normocephalic, Atraumatic. EYES: PERRL, EOMI PULMONARY: Unlabored respirations. No audible rales rhonchi or wheezing was noted. CARDIOVASCULAR: There is a regular rate and rhythm without any murmurs gallops or rubs. Radial pulses strong and equal bilaterally 1+ pitting edema bilateral lower extremities ABDOMEN: Soft and nontender with normal bowel sounds. SKIN: Skin is clear with no lesions or rashes and otherwise unremarkable. : Deferred NEUROLOGIC: Patient is alert and oriented x3. Moving all extremities spontaneously MUSCULOSKELETAL: Normal extremities with adequate strength and full range of motion. No lower extremity swelling or edema. No calf tenderness. PSYCHIATRIC: Normal psychiatric evaluation. Limitations: no limitations Course Vital Signs 01/26/19 01/26/19 04:14 05:18 Temperature 98.1 F Pulse Rate 71 70 Respiratory 20 18 Rate Blood Pressure 123/74 129/68 O2 Sat by Pulse 96 99 Oximetry Chest Pain MDM - MDM The patient was seen and evaluated history was obtained from the patient as well as his bedside 78-year-old woman with known coronary artery disease who is been stented in the past presenting with pressure-like chest pain radiating to his right shoulder similar to previous episodes of unstable angina. Cardiac workup was initiated Initial EKG is nonischemic EKG obtained at 4:22 AM, rate 70 to rhythm is sinus is normal axis, normal intervals, SD 172, QRS 102, QTc [address] elevations or depressions no evidence of acute ischemia or infarction. Labs unremarkable Based on patient's age history and presenting complaint I feel he is high risk cardiac patient who warrants admission to the hospital for further evaluation by cardiology. Last stress test was nearly 3 years ago. Patient agreeable to plan for staying. Patient was admitted with cardiology consult. Disposition Clinical Impression: Chest pain Disposition: ADMITTED IP TO THIS HOSP Condition: Stable Referrals: Rae Harrison MD [Primary Care Provider] - 1-2 days
[2019-01-26] MEDS ORDERED: NITROGLYCERIN SL TABS 0.4 MG TAB SUBLINGUAL PRN (05:35)
[2019-01-26 05:37] LABS: Basophils % (A) 0 %; Eosinophils # (A) 0.2 k/uL (0-0.7); Eosinophils % (A) 2 %; HCT 41.7 % (39.0-53.0); HGB 14.9 gm/dL (13.0-17.5); Lymphocytes # (A) 1.8 k/uL (1.0-4.8); Lymphocytes % (A) 20 %; MCH 33.6 pg (25.0-35.0); MCHC 35.6 g/dL (31.0-37.0); MCV 94.3 fL (80.0-100.0); Mean Platelet Volume 6.1; Monocytes # (A) 0.5 k/uL (0-1.0); Monocytes % (A) 5 %; Neutrophils # (A) 6.6 k/uL (1.3-7.7); Neutrophils % (A) 72 %; Platelet Count 199 k/uL (150-450); RBC 4.43 m/uL (4.30-5.90); RDW 12.9 % (11.5-15.5); WBC 9.2 k/uL (3.8-10.6)
[2019-01-26] MEDS ORDERED: HEPARIN SODIUM,PORCINE 5,000 UNIT/ML 1 ML VIAL SQ SCH (08:00)
[2019-01-26] MEDS ORDERED: METOPROLOL SUCCINATE (ER) 50 MG TAB.ER.24H PO SCH (09:00)
[2019-01-26] MEDS ORDERED: ATORVASTATIN 20 MG TAB PO SCH (09:00)
[2019-01-26] MEDS ORDERED: amLODIPine 5 MG TAB PO SCH (09:00)
[2019-01-26] MEDS ORDERED: AMINOPHYLLINE 500 MG/20 ML VIAL IV PRN (10:02)
[2019-01-26] MEDS ORDERED: CAFFEINE CITRATE 60 MG/3 ML VIAL IV PRN (10:02)
[2019-01-26] MEDS ORDERED: SODIUM CHLORIDE 0.9% IV ONE (10:15)
[2019-01-26] MEDS ORDERED: DIPYRIDAMOLE IV ONE (10:15)
[2019-01-26] MEDS ORDERED: PNEUMOCOCCAL VACC-PNEUMOVAX 23 25 MCG/0.5 ML VIAL IM ONE (10:21)
[2019-01-26] MEDS ORDERED: INFLUENZA VACCINE (6 MOS+) 60 MCG/0.5 ML SYRINGE IM ONE (10:21)
[2019-01-26] MEDS ORDERED: DIAZEPAM 5 MG TAB PO PRN (10:57)
[2019-01-26] MEDS ORDERED: LISINOPRIL-HCTZ 10-12.5 MG 1 EACH TAB PO SCH (11:00)
--- NOTE | 2019-01-26 11:08 | P.HPIM ---
History of Present Illness H&P Date: 01/26/19 Chief Complaint: Right shoulder blade pain This is a 78-year-old male, patient of Dr. Harrison. He has a past medical history of myocardial infarction, coronary artery disease with previous cardiac stents. He had 2 stents placed in 2017. Also has a history of hypertension, h yperlipidemia, GERD, hiatal hernia, angina and melanoma of the abdominal wall. Patient presents to the emergency room with complaints of right shoulder blade pain. Symptoms started last night. He was concerned that he might be having an angina attack. He shouldn't and 2017 had 2 stents placed and had similar symptoms however the pain that went across both shoulder blades. He took 3 nitro with no improvement. He did have some improvement with the aspirin. She denies any actual chest pain or pressure. Denies any nausea or vomiting, diaphoresis, heart palpitations or shortness of breath. Patient reports his last stress test was in 2017 with no acute changes. Troponins are negative 2. EKG showing a normal sinus rhythm inferior infarct age undetermined. Chest x- ray was negative. 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 Patient works at a golf course. Patient denies any cough, fever chills or sweats. Denies any limited range of motion in that shoulder. Denies any neck pain. Denies any new injury to the arm. The shoulder blade pain does not radiate. Patient was seen and evaluated in ER. Review of Systems Please refer to HPI otherwise unremarkable Past Medical History Past Medical History: Coronary Artery Disease (CAD), Cancer, Chest Pain / Angina, GERD/Reflux, Hyperlipidemia, Hypertension, Myocardial Infarction (CT), Osteoarthritis (OA), Vascular Disorder Additional Past Medical History / Comment(s): Melanoma removed from abdomin, hiatal hernia, diverticulitis, IBS, benign colon polyps, hemorrhoids, chronic low back pain, gout, varicosities, bronchitis, prostatitis, kidney stones, hypoglycemia, idiopathic peripheral neuropathy, sinus allergies. Last Myocardial Infarction Date:: 2012 History of Any Multi-Drug Resistant Organisms: None Reported Past Surgical History: Heart Catheterization With Stent, Tonsillectomy Additional Past Surgical History / Comment(s): melanoma skin cancer removed from abd, 2008 rt knee arthoscopy, heart cath with stents to lad,diag. colonosc opy/benign polypectomy. Past Anesthesia/Blood Transfusion Reactions: Motion Sickness Additional Past Anesthesia/Blood Transfusion Reaction / Comment(s): motion sickness on boat once Date of Last Stent Placement:: 2012 Smoking Status: Former smoker - Past Family History Father Family Medical History: Myocardial Infarction (CT) Additional Family Medical History / Comment(s): Father of a CT at the age of 65yrs. Mother Family Medical History: Congestive Heart Failure (CHF), Myocardial Infarction (CT) Additional Family Medical History / Comment(s): Mother lived into her 80s. Medications and Allergies Home Medications Medication Instructions Recorded Confirmed Type Allopurinol [Zyloprim] 300 mg PO BID 05/18/16 01/26/19 History Aspirin 81 mg PO DAILY 05/18/16 01/26/19 History Atorvastatin Calcium [Lipitor] 20 mg PO HS 05/18/16 01/26/19 History Carisoprodol [Soma] 350 mg PO DAILY 05/18/16 01/26/19 History Diazepam [Valium] 5 mg PO DAILY PRN 05/18/16 01/26/19 History Metoprolol Succinate (ER) [Toprol 50 mg PO DAILY 05/18/16 01/26/19 History XL] Multivitamin [Men's Multi-Vitamin] 1 tab PO DAILY 05/18/16 01/26/19 History Omeprazole [PriLOSEC] 20 mg PO AC-BRKFST 05/18/16 01/26/19 History amLODIPine [Norvasc] 5 mg PO BID 05/18/16 01/26/19 History Lisinopril/Hydrochlorothiazide 1 tab PO DAILY 01/26/19 01/26/19 History [Zestoretic 10-12.5] Allergies Allergy/AdvReac Type Severity Reaction Status Date / Time No Known Allergies Allergy Verified 01/26/19 07:27 Physical Exam Vitals: Vital Signs Temp Pulse Resp BP Pulse Ox 01/26/19 10:56 98.6 F 81 20 149/84 96 01/26/19 09:05 67 18 159/85 97 01/26/19 07:26 98 F 68 20 136/78 98 01/26/19 06:21 75 18 140/80 98 01/26/19 05:18 70 18 129/68 99 01/26/19 04:14 98.1 F 71 20 123/74 96 Intake and Output 01/25/19 01/26/19 01/26/19 22:59 06:59 14:59 Other: Weight 102.058 kg Head normocephalic Neck supple Lungs clear to auscultation bilaterally no wheezing or crackles Heart regular rate and rhythm S1-S2, no rub or gallop Abdomen is soft nontender nondistended positive bowel sounds no hepatosplenomegaly Extremities no edema Neuro alert and orientated to 3 Musculoskeletal patient has full range of motion of the right shoulder. No tenderness with palpation. Results CBC & Chem 7: 01/26/19 04:26 01/26/19 04:26 Labs: Abnormal Lab Results - Last 24 Hours (Table) 01/26/19 Range/Units 04:26 Carbon Dioxide 21 L (22-30) mmol/L BUN 22 H (9-20) mg/dL Creatinine 1.29 H (0.66-1.25) mg/dL Glucose 122 H (74-99) mg/dL Thrombosis Risk Factor Assmnt - Choose All That Apply Any of the Below Risk Factors Present?: Yes Each Factor Represents 1 point: Obesity (BMI >25), Varicose veins Other Risk Factors: Yes Each Risk Factor Represents 2 Points: Malignancy Each Risk Factor Represents 3 Points: Age 75 years or older Other congenital or acquired thrombophilia - If yes, enter type in comment: No Thrombosis Risk Factor Assessment Total Risk Factor Score: 7 Thrombosis Risk Factor Assessment Level: High Risk Assessment and Plan Assessment: 1. Right shoulder blade pain similar to previous angina attack in which patient required 2 cardiac stents to be placed. Cardiology on consult. They have ordered a stress test. EKG showing a normal sinus rhythm with inferior infarct age undetermined. Troponins are negative 2. Chest x-rays negative. 2. History of myocardial infarction and coronary artery disease with cardiac stents 3. Essential hypertension: Continue current blood pressure medications. Blood pressure a little elevated this morning at 159/85. Home blood pressure medications restarted 4. Hyperlipidemia continue statin 5. GERD and hiatal hernia continue omeprazole 6. History of melanoma of the abdominal wall GI prophylaxis omeprazole and DVT prophylaxis subcu heparin Time with Patient: Greater than 30 (Greater than 50% of the total time spent in counseling and coordination of care.I performed an examination of the patient and discussed their management with the physician Gas Meter Reader. I have reviewed the Physician Gas Meter Reader's notes and agree with the documented findings and plan of care)
--- NOTE | 2019-01-26 12:53 | P.CRDCN ---
History of Present Illness History of present illness: This is a pleasant 78-year-old male past medical history significant for coronary artery disease, myocardial infarction, hypertension, dyslipidemia and gastroesophageal reflux disease. He follows in the office with Dr. Dunbar. In 2012 he suffered an myocardial infarction resulting in stent placement to the LAD and diagonal branch, he also had a occlusion of the proximal RCA. We have been seeing him in consultation secondary to chest discomfort. He states last evening while he was laying down getting ready for bed he noticed a achy pressure sensation in the right scapular region. He states this discomfort persisted for a few hours with no specific aggravating or alleviating factor. He attempted to change positions in bed with no relief. He states in 2013 his only symptom heart disease with back discomfort. His symptoms slowly started to subside on their own after about 3 hours. He is currently chest pain-free. The pain did not radiate to the arm, neck or jaw. There is no associated shortness of breath, dizziness, nausea, vomiting or diaphoresis. 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 EKG reveals sinus mechanism with inferior Q waves noted. No acute changes. Chest x-ray is negative for an acute cardiopulmonary process. Laboratory data reviewed, CBC unremarkable, sodium 141, potassium 3.9, creatinine 1.29, cardiac enzymes negative 3, proBNP 153. Current daily cardiac medications include aspirin 81 mg daily, atorvastatin 20 mg daily, Zestoretic 10/12.5 mg daily, Toprol 50 mg daily and amlodipine 5 mg twice a day. Most recent echocardiogram obtained in 2017 revealed mild impaired LV systolic function with ejection fraction 45-50%, basal posterior, basal inferior wall hypokinesia, mild tricuspid regurgitation. At the time of my exam: CONSTITUTIONAL: Denies fever. Denies chills. EYES: Denies blurred vision. Denies vision changes. Denies eye pain. EARS, NOSE, MOUTH & THROAT: Denies headache. Denies sore throat. Denies ear pain. CARDIOVASCULAR: Denies chest pain. Denies shortness of breath. Denies orthopnea. Denies PND. Denies palpitations. RESPIRATORY: Denies cough. GASTROINTESTINAL: Denies abdominal pain. Denies diarrhea. Denies constipation. Denies nausea. Denies vomiting. MUSCULOSKELETAL: Denies myalgias. INTEGUMENTARY: Denies pruitis. Denies rash. NEUROLOGIC: Denies numbness. Denies tingling. Denies weakness. PSYCHIATRIC: Denies anxiety. Denies depression. ENDOCRINE: Denies fatigue. Denies weight change. Denies polydipsia. Denies polyurina. GENITOURINARY: Denies burning, hematuria or urgency with micturation. HEMATOLOGIC: Denies history of anemia. Denies bleeding. Blood pressure 149/84 heart rate 81 afebrile maintaining oxygen saturation on room air GENERAL: This is a 78-year-old male in no apparent distress at the time of my examination. HEENT: Head is atraumatic, normocephalic. Pupils are equal, round. Sclerae anicteric. Conjunctivae are clear. Mucous membranes of the mouth are moist. Neck is supple. There is no jugular venous distention. No carotid bruit is heard. LUNGS: Clear to auscultation no wheezes, rales or rhonchi. No chest wall tenderness is noted on palpation or with deep breathing. HEART: Regular rate and rhythm without murmurs, rubs or gallops. S1 and S2 heard. ABDOMEN: Soft, nontender. Bowel sounds are heard. No organomegaly noted. EXTREMITIES: No evidence of peripheral edema and no calf tenderness noted. VASCULAR: Radial and dorsalis pedis pulses palpated, no evidence of clubbing. NEUROLOGIC: Patient is awake, alert and oriented x3. ASSESSMENT Chest pain, similar to previous myocardial infarction however may have some musculoskeletal component. An acute coronary event has been ruled out. History of coronary artery disease Ischemic cardiomyopathy Hypertension Dyslipidemia History of myocardial infarction Daily alcohol intake PLAN An acute coronary event has been ruled out. Proceed with Persantine stress test to assess for stress-induced ischemia. If stress test is normal he may be discharged from a cardiac perspective. Follow with Dr. Dunbar upon discharge. Thank you kindly for this consultation. Nurse Practitioner note has been reviewed, I agree with a documented findings and plan of care. Patient was seen and examined. Past Medical History Past Medical History: Coronary Artery Disease (CAD), Cancer, Chest Pain / Angina, GERD/Reflux, Hyperlipidemia, Hypertension, Myocardial Infarction (HI), Osteoarthritis (OA), Vascular Disorder Additional Past Medical History / Comment(s): Melanoma removed from abdomin, hiatal hernia, diverticulitis, IBS, benign colon polyps, hemorrhoids, chronic low back pain, gout, varicosities, bronchitis, prostatitis, kidney stones, hypoglycemia, idiopathic peripheral neuropathy, sinus allergies. Last Myocardial Infarction Date:: 2012 History of Any Multi-Drug Resistant Organisms: None Reported Past Surgical History: Heart Catheterization With Stent, Tonsillectomy Additional Past Surgical History / Comment(s): melanoma skin cancer removed from abd, 2008 rt knee arthoscopy, heart cath with stents to lad,diag. c olonoscopy/benign polypectomy. Past Anesthesia/Blood Transfusion Reactions: Motion Sickness Additional Past Anesthesia/Blood Transfusion Reaction / Comment(s): motion sickness on boat once Date of Last Stent Placement:: 2012 Smoking Status: Former smoker - Past Family History Father Family Medical History: Myocardial Infarction (HI) Additional Family Medical History / Comment(s): Father of a HI at the age of 65yrs. Mother Family Medical History: Congestive Heart Failure (CHF), Myocardial Infarction (HI) Additional Family Medical History / Comment(s): Mother lived into her 80s. Medications and Allergies Home Medications Medication Instructions Recorded Confirmed Type Allopurinol [Zyloprim] 300 mg PO BID 05/18/16 01/26/19 History Aspirin 81 mg PO DAILY 05/18/16 01/26/19 History Atorvastatin Calcium [Lipitor] 20 mg PO HS 05/18/16 01/26/19 History Carisoprodol [Soma] 350 mg PO DAILY 05/18/16 01/26/19 History Diazepam [Valium] 5 mg PO DAILY PRN 05/18/16 01/26/19 History Metoprolol Succinate (ER) [Toprol 50 mg PO DAILY 05/18/16 01/26/19 History XL] Multivitamin [Men's Multi-Vitamin] 1 tab PO DAILY 05/18/16 01/26/19 History Omeprazole [PriLOSEC] 20 mg PO AC-BRKFST 05/18/16 01/26/19 History amLODIPine [Norvasc] 5 mg PO BID 05/18/16 01/26/19 History Lisinopril/Hydrochlorothiazide 1 tab PO DAILY 01/26/19 01/26/19 History [Zestoretic 10-12.5] Allergies Allergy/AdvReac Type Severity Reaction Status Date / Time No Known Allergies Allergy Verified 01/26/19 07:27 Physical Exam Vitals: Vital Signs Temp Pulse Resp BP Pulse Ox 01/26/19 10:56 98.6 F 81 20 149/84 96 01/26/19 09:05 67 18 159/85 97 01/26/19 07:26 98 F 68 20 136/78 98 01/26/19 06:21 75 18 140/80 98 01/26/19 05:18 70 18 129/68 99 01/26/19 04:14 98.1 F 71 20 123/74 96 Intake and Output 01/25/19 01/26/19 01/26/19 22:59 06:59 14:59 Other: Weight 102.058 kg Results 01/26/19 04:26 01/26/19 04:26 Cardiac Enzymes 01/26/19 01/26/19 01/26/19 Range/Units 04:26 04:26 07:14 AST 32 (17-59) U/L Troponin I <0.012 <0.012 (0.000-0.034) ng/mL Coagulation 01/26/19 Range/Units 04:26 PT 10.1 (9.0-12.0) sec APTT 26.0 (22.0-30.0) sec CBC 01/26/19 Range/Units 04:26 WBC 9.2 (3.8-10.6) k/uL RBC 4.43 (4.30-5.90) m/uL Hgb 14.9 (13.0-17.5) gm/dL Hct 41.7 (39.0-53.0) % Plt Count 199 (150-450) k/uL Comprehensive Metabolic Panel 01/26/19 Range/Units 04:26 Sodium 141 (137-145) mmol/L Potassium 3.9 (3.5-5.1) mmol/L Chloride 105 (98-107) mmol/L Carbon Dioxide 21 L (22-30) mmol/L BUN 22 H (9-20) mg/dL Creatinine 1.29 H (0.66-1.25) mg/dL Glucose 122 H (74-99) mg/dL Calcium 10.0 (8.4-10.2) mg/dL AST 32 (17-59) U/L ALT 28 (21-72) U/L Alkaline Phosphatase 71 (38-126) U/L Total Protein 7.4 (6.3-8.2) g/dL Albumin 4.5 (3.5-5.0) g/dL Current Medications Generic Name Dose Route Start Last Admin Trade Name Freq PRN Reason Stop Dose Admin Allopurinol 300 mg 01/26/19 21:00 Zyloprim PO BID [facility] Aminophylline 100 mg 01/26/19 10:02 Aminophylline IV 01/26/19 23:59 ONCE PRN Patient Response Amlodipine Besylate 5 mg 01/26/19 09:00 01/26/19 09:01 Norvasc PO 5 mg DAILY SERGIO Administration Aspirin 325 mg 01/27/19 09:00 Aspirin PO DAILY [facility] Atorvastatin Calcium 20 mg 01/26/19 09:00 01/26/19 09:02 Lipitor PO 20 mg DAILY SERGIO Administration Caffeine Citrate 60 mg 01/26/19 10:02 Cafcit Inj IV 01/26/19 23:59 ONCE PRN Patient Response Carisoprodol 350 mg 01/27/19 09:00 Soma PO DAILY [facility] Diazepam 5 mg 01/26/19 10:57 Valium PO DAILY PRN Anxiety Lisinopril/HCTZ 1 each 01/26/19 11:00 Zestoretic 10-12.5 PO DAILY [facility] Heparin Sodium (Porcine) 5,000 unit 01/26/19 08:00 01/26/19 09:01 Heparin SQ 5,000 unit Q8HR SERGIO Administration Sodium Chloride 1,000 mls @ 100 mls/hr 01/26/19 04:24 01/26/19 05:15 Saline 0.9% IV 01/26/19 14:23 100 mls/hr .Q10H STA Administration Metoprolol Succinate 50 mg 01/26/19 09:00 01/26/19 09:01 Toprol Xl PO 50 mg DAILY SERGIO Administration Multivitamins 1 each 01/27/19 09:00 Theragran PO DAILY [facility] Nitroglycerin 0.4 mg 01/26/19 05:35 Nitrostat SUBLINGUAL Q5M PRN Chest Pain Pantoprazole Sodium 40 mg 01/27/19 07:30 Protonix PO AC-BRKFST SERGIO Intake and Output 01/25/19 01/26/19 01/26/19 22:59 06:59 14:59 Other: Weight 102.058 kg 01/26/19 04:26 01/26/19 04:26
--- NOTE | 2019-01-26 13:01 | NM ---
EXAMINATION TYPE: NM stress persantine cardiolit DATE OF EXAM: 01/26/2019 COMPARISON: NONE HISTORY: Chest pain. TECHNIQUE: After the intravenous administration of 10.68 mCi Tc 99m Sestamibi - Cardiolite resting S PECT images acquired 55 minutes post injection. The patient received 58 mg Persantine, 25.9 mCi Tc 99m Sestamibi - Stress images obtained 35 minutes post injection FINDINGS: Review of stress and rest SPECT images demonstrates no reversible perfusion abnormality. There is a fixed defect along the inferolateral wall involving the basilar segments however there is no abnormal wall motion and this is likely artifact related to either adjacent diaphragmatic, gastrointestinal, or breast attenuation. Gated analysis shows normal wall motion with an estimated left ventricular eje ction fraction of 56 %. TID is calculated within normal limits at 1.01. IMPRESSION: No scintigraphic evidence for reversible ischemia.
--- NOTE | 2019-01-26 14:13 | P.DS ---
Providers Date of admission: 01/26/19 05:36 Expected date of discharge: 01/26/19 Attending physician: Dolly Dean Consults: 01/26/19 05:35 Consult Physician Urgent Consulting Provider: [facility] Consult Reason/Comments: chest pain - cx CAD Do you want consulting provider notified?: Yes, Notify in am 01/26/19 10:53 Consult Physician Routine Consulting Provider: Rae Harrison Consult Reason/Comments: knows patient Do you want consulting provider notified?: Yes Primary care physician: Rae Harrison Hospital Course: Discharge diagnosis 1. Right shoulder blade pain similar to previous myocardial infarction in which patient required 2 cardiac stents to be placed. Symptoms are likely more musculoskeletal. Cardiac enzymes negative 2. Patient seen by cardiology underwent stress test which was negative. Cardiology has cleared patient for discharge EKG showing a normal sinus rhythm with inferior infarct age undetermined. Chest x-rays negative. 2. History of myocardial infarction and coronary artery disease with cardiac stents 3. Essential hypertension: Continue current blood pressure medications. Blood pressure a little elevated this morning at 159/85. Home blood pressure medications restarted and BP better at time of discharge last blood pressure was 149/84 4. Hyperlipidemia continue statin 5. GERD and hiatal hernia continue omeprazole 6. History of melanoma of the abdominal wall Hospital course This is a 78-year-old male, patient of Dr. Harrison. He has a past medical history of myocardial infarction, coronary artery disease with previous cardiac stents. He had 2 stents placed in 2017. Also has a history of hypertension, hyperlipidemia, GERD, hiatal hernia, angina and melanoma of the abdominal wall. Patient presents to the emergency room with complaints of right shoulder blade pain. Symptoms started last night. He was concerned that he might be having an angina attack. He shouldn't and 2017 had 2 stents placed and had similar symptoms however the pain that went across both shoulder blades. He took 3 nitro with no improvement. He did have some improvement with the aspirin. She denies any actual chest pain or pressure. Denies any nausea or vomiting, diaphoresis, heart palpitations or shortness of breath. Patient reports his last stress test was in 2017 with no acute changes. Troponins are negative 2. EKG showing a normal sinus rhythm inferior infarct age undetermined. Chest x- ray was negative. 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 Patient works at a golf course. Patient denies any cough, fever chills or sweats. Denies any limited range of motion in that shoulder. Denies any neck pain. Denies any new injury to the arm. The shoulder blade pain does not radiate. Patient was seen and evaluated in ER. 01/26/2019 patient is medical stable for discharge. He was seen evaluated by cardiology. Acute coronary syndrome was ruled out. He underwent a stress test which was negative and did not show any evidence for reversible ischemia. Cardiology cleared patient for discharge. Agents will be discharged from the ER. He continue with his current medications and he'll follow up with cardiology in 1 week and follow-up with Dr. Harrison in 2 weeks. Patient Condition at Discharge: Stable Plan - Discharge Summary Discharge Rx Participant: No New Discharge Prescriptions: Continue amLODIPine [Norvasc] 5 mg PO BID Omeprazole [PriLOSEC] 20 mg PO AC-BRKFST Metoprolol Succinate (ER) [Toprol XL] 50 mg PO DAILY Diazepam [Valium] 5 mg PO DAILY PRN PRN Reason: Anxiety Carisoprodol [Soma] 350 mg PO DAILY Atorvastatin Calcium [Lipitor] 20 mg PO HS Allopurinol [Zyloprim] 300 mg PO BID Aspirin 81 mg PO DAILY Multivitamin [Men's Multi-Vitamin] 1 tab PO DAILY Lisinopril/Hydrochlorothiazide [Zestoretic 10-12.5] 1 tab PO DAILY Discharge Medication List Allopurinol [Zyloprim] 300 mg PO BID 05/18/16 [History] Aspirin 81 mg PO DAILY 05/18/16 [History] Atorvastatin Calcium [Lipitor] 20 mg PO HS 05/18/16 [History] Carisoprodol [Soma] 350 mg PO DAILY 05/18/16 [History] Diazepam [Valium] 5 mg PO DAILY PRN 05/18/16 [History] Metoprolol Succinate (ER) [Toprol XL] 50 mg PO DAILY 05/18/16 [History] Multivitamin [Men's Multi-Vitamin] 1 tab PO DAILY 05/18/16 [History] Omeprazole [PriLOSEC] 20 mg PO AC-BRKFST 05/18/16 [History] amLODIPine [Norvasc] 5 mg PO BID 05/18/16 [History] Lisinopril/Hydrochlorothiazide [Zestoretic 10-12.5] 1 tab PO DAILY 01/26/19 [History] Follow up Appointment(s)/Referral(s): Rae Harrison MD [Primary Care Provider] - 1-2 days
[2019-01-26 15:09] VITALS: BP 143/78; PULSE 71; RESP 18; TEMP 98
--- NOTE | 2019-01-26 15:32 | EST ---
EXERCISE STRESS AGE: 78 SEX: Male HT: 74" WT: 225# PROTOCOL: Persantine Cardiolite STAGE: DURATION OF EXERCISE: HEART RATE REST: 81 BLOOD PRESSURE REST: 155/88 MAXIMUM HEART RATE ACHIEVED: 88 MAXIMUM BLOOD PRESSURE: 155/88 85% MPHR: 100% MPHR: METS: INDICATIONS: Chest pain. CLINICAL INFORMATION: A Lexiscan nuclear study was performed. Peak heart rate of 81 was achieved. Maximum blood pressure of 155/85 mmHg was noted. Resting EKG shows normal sinus rhythm with normal ME interval and QRS duration and normal ST-T waves. No ST-segment depression suggestive of ischemia was noted. Occasional PVCs were noted. The results of the nuclear study will follow. MMODL / IJN: [id number] /
[2019-01-26] MEDS ORDERED: ALLOPURINOL 300 MG TAB PO SCH (21:00)
[2019-01-27] MEDS ORDERED: PANTOPRAZOLE 40 MG TABLET PO SCH (07:30)
[2019-01-27] MEDS ORDERED: MULTIVITAMINS, THERA 1 EACH TAB PO SCH (09:00)
[2019-01-27] MEDS ORDERED: ASPIRIN 325 MG TAB PO SCH (09:00)
[2019-01-27] MEDS ORDERED: CARISOPRODOL 350 MG TAB PO SCH (09:00)
== END 2019-01-26 14:17 | disposition home or self-care (01) ==
LOC: EC 04:11 → 1SOBS 05:36
PROVIDERS: ADMIT Internal Medicine; ATTEND Internal Medicine
DX: M25.511 Pain in right shoulder (principal); R07.89 Other chest pain; I25.2 Old myocardial infarction; I25.10 Atherosclerotic heart disease of native coronary artery without angina pectoris; I10 Essential (primary) hypertension; E78.5 Hyperlipidemia, unspecified; K21.9 Gastro-esophageal reflux disease without esophagitis; K44.9 Diaphragmatic hernia without obstruction or gangrene; K58.9 Irritable bowel syndrome, unspecified; M10.9 Gout, unspecified; I83.90 Asymptomatic varicose veins of unspecified lower extremity; I49.9 Cardiac arrhythmia, unspecified; L30.9 Dermatitis, unspecified; G60.9 Hereditary and idiopathic neuropathy, unspecified; F41.9 Anxiety disorder, unspecified; I25.5 Ischemic cardiomyopathy; E66.9 Obesity, unspecified; Z68.28 Body mass index [BMI] 28.0-28.9, adult; Z95.5 Presence of coronary angioplasty implant and graft; Z85.820 Personal history of malignant melanoma of skin; Z79.899 Other long term (current) drug therapy; Z79.82 Long term (current) use of aspirin; M19.90 Unspecified osteoarthritis, unspecified site; Z87.442 Personal history of urinary calculi; Z87.09 Personal history of other diseases of the respiratory system; Z87.19 Personal history of other diseases of the digestive system; Z87.891 Personal history of nicotine dependence; Z82.49 Family history of ischemic heart disease and other diseases of the circulatory system
CPT/HCPCS: 96360; 96361; 96372; 99285; 36415; 93005; 93017; 83880; 80053; 83735; 84484; 85025; 85610; 85730; 71046; 78452; G0378; A9500; J1644; J1245

== ENCOUNTER 2022-09-03 07:24 | Day surgery (SDC) | payer MEDICARE ==
[~2022-09-03 07:24] MED LIST: ACETAMINOPHEN TAB 500 MG TAB PO PRN; DEXAMETHASONE SOD PHOSPHATE 4 MG/ML 1 ML VIAL IV ONE; HEPARIN SODIUM,PORCINE/PF 5,000 UNIT/0.5 ML SYRINGE SQ PRN; HYDROmorphone 0.5 MG/0.5 ML SYRINGE IVP PRN; LACTATED RINGERS 1,000 ML IV SCH; LIDOCAINE 1% (10MG/ML) FOR IV START INTRADERMA PRN; MIDAZOLAM 2 MG/2 ML VIAL IV PRN; ONDANSETRON 4 MG/2 ML VIAL IVP ONE
[2022-09-03 08:07] LABS: Glucose,Whole Blood 142 mg/dL (70-110)
[2022-09-03 08:19] LABS: Basophils % (A) 0 %; Eosinophils # (A) 0.1 k/uL (0-0.7); Eosinophils % (A) 1 %; HCT 42.4 % (39.0-53.0); Hyperchromasia Slight; Lymphocytes # (A) 1.3 k/uL (1.0-4.8); Lymphocytes % (A) 16 %; MCHC 35.3 g/dL (31.0-37.0); MCV 96.3 fL (80.0-100.0); Mean Platelet Volume 7.5; Monocytes # (A) 0.4 k/uL (0-1.0); Monocytes % (A) 5 %; Neutrophils % (A) 76 %; Platelet Count 186 k/uL (150-450); RDW 13.6 % (11.5-15.5)
[2022-09-03 08:42] LABS: Albumin 4.4 g/dL (3.5-5.0); Calcium 9.4 mg/dL (8.4-10.2); Total Bilirubin 1.2 mg/dL (0.2-1.3); Total Protein 7.2 g/dL (6.3-8.2)
[2022-09-03 08:50] LABS: Potassium 3.8 mmol/L (3.5-5.1)
[2022-09-03] MEDS ORDERED: MIDAZOLAM 2 MG/2 ML VIAL IVP ONE (09:00)
[2022-09-03] MEDS ORDERED: fentaNYL (PF) 50 MCG/ML 2 ML AMP IVP ONE (09:02)
[2022-09-03] MEDS ORDERED: ROPIVACAINE 5 MG/ML 30 ML VIAL ONE (09:20)
[2022-09-03] MEDS ORDERED: PROPOFOL 10 MG/ML 20 ML VIAL IV ONE (09:20)
[2022-09-03] MEDS ORDERED: SUCCINYLCHOLINE CHLORIDE 200 MG/10 ML VIAL IV ONE (09:20)
[2022-09-03] MEDS ORDERED: KETAMINE 10 MG/ML 20 ML VIAL ONE (09:20)
[2022-09-03] MEDS ORDERED: LIDOCAINE 2% INJ 20 MG/ML (2 ML VIAL) ONE (09:20)
[2022-09-03] MEDS ORDERED: NEOSTIGMINE 1 MG/ML 10 ML VIAL ONE (09:20)
[2022-09-03] MEDS ORDERED: fentaNYL (PF) 50 MCG/ML 2 ML AMP ONE (09:20)
[2022-09-03] MEDS ORDERED: ROCURONIUM 10 MG/ML (5 ML VIAL) IV ONE (09:20)
[2022-09-03] MEDS ORDERED: GLYCOPYRROLATE 0.2 MG/ML 2 ML VIAL ONE (09:20)
[2022-09-03] MEDS ORDERED: SODIUM CHLORIDE 0.9% (PF) 10 ML VIAL ONE (09:20)
[2022-09-03] MEDS ORDERED: BUPIVACAINE (PF) 0.25% 30 ML VIAL SQ ONE ×2 (09:48)
--- NOTE | 2022-09-03 10:15 | P.ANPRN ---
Procedure Note - Anesthesia - Nerve Block Performed Left Erector Spinae Time Out Performed: Yes (09:00) Date of Procedure: 09/03/22 Procedure Start Time: :00 Procedure Stop Time: : Location of Patient: PreOp Indication: Acute Post-Operative Pain, Requested by Surgeon (Dr Pak) Sedation Type: Sedate with meaningful contact maintained Preparation: Sterile Prep Position: Prone Catheter: None Needle Types: Pajunk Needle Gauge: 21 Ultrasound used to visualize needle placement: Yes Ultrasound used to observe medication spread: Yes Injectate: 0.5% Ropivacaine (see comment for volume) (15cc + 10cc PF Normal saline) Blood Aspirated: No Pain Paresthesia on Injection Noted: No Resistance on Injection: Normal Image Stored and Saved: Yes Events: Uneventful and Well Tolerated
--- NOTE | 2022-09-03 10:38 | P.OP ---
Date of Procedure: 09/03/22 Preoperative Diagnosis: Left inguinal hernia Postoperative Diagnosis: Left inguinal hernia Procedure(s) Performed: Open repair of left inguinal hernia with Prolene hernia mesh system Excision of cord lipoma Anesthesia: AWILDAA Surgeon: Erik Pak Estimated Blood Loss (ml): 5 Pathology: other (Cord lipoma) Condition: stable Disposition: PACU Description of Procedure: DESCRIPTION OF PROCEDURE: The patient was placed in the supine position after receiving adequate anesthesia. Patients groin was prepped and draped in the usual sterile fashion. A standard hernia incision was made and the subcutaneous tissues were divided with electrocautery. The fascia of the e xternal oblique was exposed. A francisco the fascia was made with #15 blade. The fascia was then opened with pair of Metzenbaum scissors. A Weitlaner retractor was placed in the wound and the cord structures were grasped and dissected free from the inguinal canal. A rubber Vivek drain was placed around the cord structures. The cord lipoma was dissected free and sent to pathology The hernial sac was seen on the anterior-medial portion of the cord and this was dissected free from the cord. The hernia sac was then invaginated to the peritoneal cavity. Using blunt finger dissection, the preperitoneal space was dissected and then the Prolene hernial mesh plug was placed into the prepared space. The inferior leaf was expanded. The superior leaf was secured to the pubic tubercle using 2-0 Prolene suture. The lateral portion of the superior leaf was incised and cords tied and secured to the transversalis fascia using 2-0 Prolene suture. Fascia of the external oblique was then closed using #0 Vicryl suture. The Vivek drain was removed. The Scarpas fascia was then closed with 3-0 Vicryl suture and skin was closed with ivelisse. The patient tolerated the procedure well.
[2022-09-03 10:44] VITALS: TEMP 97
[2022-09-03 12:39] VITALS: BP 144/78; PULSE 60; RESP 18
== END 2022-09-03 12:52 | disposition home or self-care (01) ==
LOC: OR 07:24
PROVIDERS: ATTEND Surgery
DX: K40.90 Unilateral inguinal hernia, without obstruction or gangrene, not specified as recurrent (principal); G89.18 Other acute postprocedural pain; I10 Essential (primary) hypertension; E78.5 Hyperlipidemia, unspecified; K21.9 Gastro-esophageal reflux disease without esophagitis; F41.9 Anxiety disorder, unspecified; Z79.899 Other long term (current) drug therapy
CPT/HCPCS: 64999; 88304; 80053; 85025; 49505; C1781; J2250; J0330; J1100; J2710; J2405; J3010; J2795; J2704; J1644; J2001